=== PATIENT | female | born 1970 | race Two or more races ===

== ENCOUNTER 2017-09-26 09:35 | Outpatient (CLI) | payer OTHER ==
[~2017-09-26 09:35] MED LIST: SYNTHROID100 MCG PO
== END 2017-09-26 14:33 | disposition home or self-care (01) ==
LOC: MRI 09:35
DX: K86.2 Cyst of pancreas (principal)
CPT/HCPCS: 74182

== ENCOUNTER 2017-10-19 11:52 | Outpatient (CLI) | payer OTHER | END 2017-10-19 16:25 | disposition home or self-care (01) | LOC: MAMO-SONO 11:52 | DX: N64.4 Mastodynia (principal); Z12.31 Encounter for screening mammogram for malignant neoplasm of breast ==

== ENCOUNTER 2018-02-23 04:52 | Day surgery (SDC) | payer OTHER | END 2018-02-23 11:45 | disposition home or self-care (01) | LOC: CIR.AMB 04:52 | DX: K80.10 Calculus of gallbladder with chronic cholecystitis without obstruction (principal) ==

== ENCOUNTER 2018-06-23 13:30 | Inpatient (IN) | payer OTHER ==
[~2018-06-23] VITALS: Ht 157.5 cm; Wt 59.0 kg
[2018-06-29] MEDS ORDERED: GAS RELIEF125 MG PO (14:32)
[2018-06-29] MEDS ORDERED: OXYC1TAB9 PO (14:32)
[2018-06-29] MEDS ORDERED: DOCUSATE SODIU100 MG PO (14:32)
[2018-06-29] MEDS ORDERED: LEVOTHYROXINE100 MCG PO (14:32)
== END 2018-06-29 14:39 | DRG 743 ==
LOC: O/R 06-26 05:42 → OB/GYN 06-26 05:42 → SURH 06-26 13:30 → OB/GYN 06-29 14:39
PROVIDERS: Obstetrics & Gynecology
PROC: 0UT00ZZ Resection of Right Ovary, Open Approach (ICD-10-PCS; 2018-06-26)
PROC: 0UT90ZZ Resection of Uterus, Open Approach (ICD-10-PCS; principal; 2018-06-26 17:30)
PROC: 0UT70ZZ Resection of Bilateral Fallopian Tubes, Open Approach (ICD-10-PCS; 2018-06-26 17:30)
DX: N84.0 Polyp of corpus uteri (principal); N80.0 Endometriosis of uterus; N80.1 Endometriosis of ovary; N83.8 Other noninflammatory disorders of ovary, fallopian tube and broad ligament; N94.5 Secondary dysmenorrhea; N92.0 Excessive and frequent menstruation with regular cycle

== ENCOUNTER 2018-11-08 09:27 | Outpatient (CLI) | payer OTHER ==
[~2018-11-08 09:27] MED LIST changes: +DOCUSATE SODIU100 MG PO; +GAS RELIEF125 MG PO; +LEVOTHYROXINE100 MCG PO; +OXYC1TAB9 PO
== END 2018-11-08 09:43 | disposition home or self-care (01) ==
LOC: MAMO-SONO 09:27
DX: E03.8 Other specified hypothyroidism (principal); Z12.31 Encounter for screening mammogram for malignant neoplasm of breast; N63.11 Unspecified lump in the right breast, upper outer quadrant

== ENCOUNTER 2020-03-06 09:43 | Outpatient (CLI) | payer OTHER | END 2020-03-06 09:57 | disposition home or self-care (01) | LOC: MAMO-SONO 09:43 | PROVIDERS: ATTEND Obstetrics & Gynecology | DX: Z12.31 Encounter for screening mammogram for malignant neoplasm of breast (principal); N60.11 Diffuse cystic mastopathy of right breast; N60.12 Diffuse cystic mastopathy of left breast ==

== ENCOUNTER 2020-03-28 08:36 | Outpatient (CLI) | payer OTHER | END 2020-03-28 09:11 | disposition home or self-care (01) | LOC: TOM 08:36 | PROVIDERS: ATTEND Specialist | DX: E04.2 Nontoxic multinodular goiter (principal); R10.84 Generalized abdominal pain; R31.9 Hematuria, unspecified ==

== ENCOUNTER 2020-05-16 13:12 | Outpatient (CLI) | payer OTHER | END 2020-05-16 13:13 | disposition home or self-care (01) | LOC: NUCLEAR 13:12 | PROVIDERS: ATTEND Orthopaedic Surgery | DX: M81.0 Age-related osteoporosis without current pathological fracture (principal) ==

== ENCOUNTER 2020-06-11 10:24 | Outpatient (CLI) | payer OTHER | END 2020-06-11 10:35 | disposition home or self-care (01) | LOC: MRI 10:24 | PROVIDERS: ATTEND Orthopaedic Surgery | DX: M77.02 Medial epicondylitis, left elbow (principal); G56.22 Lesion of ulnar nerve, left upper limb | CPT/HCPCS: 73221 ==

== ENCOUNTER 2020-11-24 12:55 | Outpatient (CLI) | payer OTHER | END 2020-11-24 13:09 | disposition home or self-care (01) | LOC: RAD 12:55 | PROVIDERS: ATTEND Orthopaedic Surgery | DX: M25.571 Pain in right ankle and joints of right foot (principal) ==

== ENCOUNTER 2021-03-17 11:04 | Outpatient (CLI) | payer OTHER | END 2021-03-17 11:20 | disposition home or self-care (01) | LOC: MAMO-SONO 11:04 | PROVIDERS: ATTEND Specialist | DX: E03.8 Other specified hypothyroidism (principal); D24.1 Benign neoplasm of right breast; E04.2 Nontoxic multinodular goiter ==

== ENCOUNTER 2021-09-17 09:56 | Outpatient (CLI) | payer OTHER | END 2021-09-17 11:10 | disposition home or self-care (01) | LOC: SONOGRAMA 09:56 | PROVIDERS: ATTEND Obstetrics & Gynecology | DX: N83.292 Other ovarian cyst, left side (principal) ==

== ENCOUNTER 2022-03-26 10:56 | Outpatient (CLI) | payer OTHER | END 2022-03-26 10:57 | disposition home or self-care (01) | LOC: NUCLEAR 10:56 | PROVIDERS: ATTEND Obstetrics & Gynecology | DX: M81.0 Age-related osteoporosis without current pathological fracture (principal); E55.9 Vitamin D deficiency, unspecified ==

== ENCOUNTER 2022-04-01 11:01 | Outpatient (CLI) | payer OTHER | END 2022-04-01 11:30 | disposition home or self-care (01) | LOC: MAMO-SONO 11:01 | PROVIDERS: ATTEND Obstetrics & Gynecology | DX: N60.11 Diffuse cystic mastopathy of right breast (principal); N60.12 Diffuse cystic mastopathy of left breast ==

== ENCOUNTER 2022-05-13 09:53 | Outpatient (CLI) | payer OTHER | END 2022-05-13 10:00 | disposition home or self-care (01) | LOC: SONOGRAMA 09:53 | PROVIDERS: ATTEND Obstetrics & Gynecology | DX: M25.521 Pain in right elbow (principal); R10.31 Right lower quadrant pain ==

== ENCOUNTER 2022-07-13 08:57 | Outpatient (CLI) | payer OTHER | END 2022-07-13 08:58 | disposition home or self-care (01) | LOC: TOM 08:57 | PROVIDERS: ATTEND Pediatrics Pediatric Endocrinology | DX: R10.84 Generalized abdominal pain (principal); K86.2 Cyst of pancreas; R10.9 Unspecified abdominal pain; M25.521 Pain in right elbow | CPT/HCPCS: 73221 ==

== ENCOUNTER 2022-09-30 08:34 | Outpatient (CLI) | payer OTHER | END 2022-09-30 08:45 | disposition home or self-care (01) | LOC: SONOGRAMA 08:34 | PROVIDERS: ATTEND General Practice | DX: E06.3 Autoimmune thyroiditis (principal); E03.8 Other specified hypothyroidism; E04.2 Nontoxic multinodular goiter; E55.9 Vitamin D deficiency, unspecified; E56.8 Deficiency of other vitamins ==

== ENCOUNTER 2023-04-07 09:58 | Outpatient (CLI) | payer OTHER | END 2023-04-07 10:09 | disposition home or self-care (01) | LOC: MAMO-SONO 09:58 | PROVIDERS: ATTEND Specialist | DX: D24.1 Benign neoplasm of right breast (principal); Z12.31 Encounter for screening mammogram for malignant neoplasm of breast ==

== ENCOUNTER 2024-04-12 08:44 | Outpatient (CLI) | payer OTHER ==
[2024-04-12 09:56] LABS: URINE APPEARANCE Clear; URINE BILIRRUBIN Negative (NEGATIVE); URINE BLOOD Negative; URINE COLOR Yellow; URINE GLUCOSE Negative (NEGATIVE); URINE KETONE Negative (NEGATIVE); URINE LEUKOCYTE Negative; URINE NITRATE Negative; URINE PROTEIN Negative (NEGATIVE); URINE UROBILINOGEN 0.2 E.U./dl
[2024-04-12 10:00] LABS: URINE RBC 4.5 uL (0.0-20.8)
[2024-04-12 10:08] LABS: URINE BACTERIA 1.2 uL (0.0-1933); URINE EPITHELIAL CELLS 0.1 uL (0.0-38.8); URINE WBC 0.4 uL (0.0-23.2)
[2024-04-12 10:11] LABS: HEMATOCRIT 41.3 % (36.0-45.00); HEMOGLOBIN 14.1 g/dL (12.0-15.00); MEAN CELL VOLUME 83.7 fL (80.00-100.00); MEAN CORPUSCULAR HEMOGLOBIN 28.5 pg (27.00-32.0); PLATELET COUNT 263 K/uL (150-450); RED BLOOD COUNT 4.94 M/uL (4.00-6.00); RED CELL DISTRIBUTION WIDTH 14.2 % (11.5-14.5)
[2024-04-12 10:37] LABS: ALBUMIN 4.1 gm/dL (3.4-5.0); BILIRUBIN TOTAL 0.59 mg/dL (0.3-1.2); CALCIUM 9.7 mg/dL (8.5-10.1); CHOL HDL RATIO 2.6 (0-5.0); CREATININE SERUM 0.54 mg/dL (0.55-1.02); GFR 117.21; GLOBULINA 3.5 G/DL (2.4-3.5); POTASSIUM 4.24 mEq/L (3.5-5.1); T4 TOTAL 10.73 UG/DL (4.8-13.9); TOTAL PROTEIN 7.6 gm/dL (6.4-8.2); TSH 0.408 uIU/mL (0.358-3.74)
[2024-04-12 10:41] LABS: URIC ACID 2.9 mg/dL (2.5-7.5)
== END 2024-04-12 09:12 | disposition home or self-care (01) ==
LOC: LAB 08:44
PROVIDERS: ATTEND Internal Medicine Cardiovascular Disease
DX: E11.9 Type 2 diabetes mellitus without complications (principal); I10 Essential (primary) hypertension; E03.9 Hypothyroidism, unspecified; E78.2 Mixed hyperlipidemia; E55.9 Vitamin D deficiency, unspecified; M81.0 Age-related osteoporosis without current pathological fracture; M10.9 Gout, unspecified; M19.90 Unspecified osteoarthritis, unspecified site

== ENCOUNTER 2024-04-12 10:08 | Outpatient (CLI) | payer OTHER | END 2024-04-12 10:23 | disposition home or self-care (01) | LOC: RAD 10:08 → MAMO-SONO 10:08 | PROVIDERS: ATTEND Specialist | DX: R92.30 Dense breasts, unspecified (principal); R51.9 Headache, unspecified; M12.9 Arthropathy, unspecified; M46.47 Discitis, unspecified, lumbosacral region ==

== ENCOUNTER 2024-05-03 09:01 | Outpatient (CLI) | payer OTHER | END 2024-05-04 08:25 | disposition home or self-care (01) | LOC: SONOGRAMA 09:01 | PROVIDERS: ATTEND General Practice | DX: E06.3 Autoimmune thyroiditis (principal); E03.8 Other specified hypothyroidism; E04.2 Nontoxic multinodular goiter; E55.9 Vitamin D deficiency, unspecified; E56.8 Deficiency of other vitamins ==

== ENCOUNTER 2024-06-05 13:23 | Outpatient (CLI) | payer OTHER | END 2024-06-05 13:32 | disposition home or self-care (01) | LOC: NUCLEAR 13:23 | PROVIDERS: ATTEND Obstetrics & Gynecology | DX: M81.0 Age-related osteoporosis without current pathological fracture (principal) ==

== ENCOUNTER 2025-03-14 09:00 | Outpatient (CLI) | payer OTHER | END 2025-03-14 09:07 | disposition home or self-care (01) | LOC: SONOGRAMA 09:00 | PROVIDERS: ATTEND Internal Medicine Gastroenterology | DX: R10.9 Unspecified abdominal pain (principal) ==

== ENCOUNTER 2025-04-18 09:21 | Outpatient (CLI) | payer OTHER | END 2025-04-18 09:31 | disposition home or self-care (01) | LOC: MAMO-SONO 09:21 | PROVIDERS: ATTEND Specialist | DX: D24.1 Benign neoplasm of right breast (principal) ==